=== PATIENT | male | born 1995 | race Caucasian/White ===

== ENCOUNTER 2023-09-05 11:27 | Emergency (ER) | payer MEDICAID, OTHER ==
[~2023-09-05] VITALS: Ht 180.3 cm; Wt 72.9 kg
[2023-09-05 12:24] VITALS: BP 118/73; PULSE 92; RESP 18; TEMP 98.7; O2SAT 96
[2023-09-05 13:10] LABS: COVID19 ANTIGEN SOFIA FIA NEGATIVE (NEGATIVE)
[2023-09-05 13:11] LABS: Rapid Influenza A Negative (Negative); Rapid Influenza B Negative (Negative)
[2023-09-05] MEDS ORDERED: IBUP-1454 PO (13:13)
[2023-09-05] MEDS ORDERED: LOPE2TAB99 PO (13:13)
== END 2023-09-05 13:14 | disposition home or self-care (01) ==
LOC: ER 11:27
DX: B34.9 Viral infection, unspecified (principal); Z20.822 Contact with and (suspected) exposure to COVID-19
CPT/HCPCS: 36415; 87426; 87804